=== PATIENT | female | born 1935 | race Caucasian/White ===

== ENCOUNTER → 2021-08-16 | Outpatient (CLI) | payer MEDICARE ==
[~2021-08-16] MED LIST: GLIM1TAB18 PO; OMEP20CA12 PO; SIMV-46 PO; VALS160T29 PO; VITA FUSION PO; vitamin b12 PO
== END | disposition home or self-care (01) ==
LOC: LAB 09:43
PROVIDERS: ATTEND Internal Medicine
DX: Z01.818 Encounter for other preprocedural examination (principal); M17.11 Unilateral primary osteoarthritis, right knee; M25.561 Pain in right knee; M47.815 Spondylosis without myelopathy or radiculopathy, thoracolumbar region; I49.8 Other specified cardiac arrhythmias; I44.7 Left bundle-branch block, unspecified
CPT/HCPCS: 71046; 93005

== ENCOUNTER 2021-09-04 08:00 | Inpatient (IN) | payer MEDICARE ==
[~2021-09-04] VITALS: Ht 152.4 cm; Wt 72.1 kg
[2021-09-04 10:18] LABS: BASOPHILS % (AUTO) 0.7 % (0.0-5.0); EOSINOPHILS % (AUTO) 3.2 % (0.0-8.0); HEMATOCRIT 41.2 % (36-48); LYMPHOCYTES % (AUTO) 21.5 % (21.0-51.0); MEAN CORPUSCULAR HEMOGLOBIN 27.7 pg (27.0-33.0); MEAN CORPUSCULAR VOLUME 86.6 fL (79-99); MONOCYTES % (AUTO) 6.9 % (3.0-13.0); NEUTROPHILS % (AUTO) 67.4 % (40.0-77.0); PLATELET COUNT (AUTO) 299 K/uL (130-400); RED BLOOD CELL COUNT(AUTO) 4.76 MIL/uL (4.00-5.50); RED CELL DISTRIBUTION WIDTH 14.2 % (11.0-15.5); WHITE BLOOD COUNT (AUTO) 10.3 K/uL (4.8-10.8)
[2021-09-04 10:23] LABS: CREATININE 0.9 mg/dL (0.5-1.5); POTASSIUM 3.7 mmol/L (3.5-5.1)
[2021-09-04 10:49] LABS: INR 1.05 (0.85-1.15); PROTHROMBIN TIME 11.4 SEC (9.6-11.6)
[2021-09-04 11:21] LABS: APPEARANCE,URINE Clear (CLEAR); BILIRUBIN,URINE Negative (NEGATIVE); COLOR,URINE Yellow (YELLOW); GLUCOSE, URINE (UA) Negative (NEGATIVE); KETONES,URINE Negative (NEGATIVE); LEUKOCYTE ESTERASE ,URINE Trace (NEGATIVE); NITRATE,URINE Negative (NEGATIVE); OCCULT BLOOD,URINE Negative (NEGATIVE); PH,URINE 5.5 (5.0-8.0); PROTEIN,URINE Negative (NEGATIVE)
[2021-09-04 11:51] LABS: BACTERIA,URINE Rare /HPF (None Seen); RBC,URINE 0-1 /HPF (0-1); SQUAMOUS EPITHELIAL CELL,UR Rare /HPF (0-2); WBC,URINE 0-1 /HPF (0-1)
[2021-09-05 13:28] VITALS: BP 217/98
[2021-09-05] MEDS ORDERED: vitamin b12 PO (13:35)
[2021-09-05] MEDS ORDERED: GLIM1TAB18 PO (13:35)
[2021-09-05] MEDS ORDERED: VALS160T29 PO (13:35)
[2021-09-05] MEDS ORDERED: OMEP20CA12 PO (13:35)
[2021-09-05] MEDS ORDERED: VITA FUSION PO (13:35)
[2021-09-05] MEDS ORDERED: SIMV-46 PO (13:35)
[2021-09-06] VITALS (21 sets, daily range): BP systolic 125–191; BP diastolic 59–87
[2021-09-06] MEDS ORDERED: 0.9%NACL 1000ML 1,000 ML IV ONE (07:14)
[2021-09-06] MEDS ORDERED: CEFAZOLIN SODIUM 1 GM VIAL IVP ONE (08:00)
[2021-09-06] MEDS ORDERED: CLINDAMYCIN IVPB 900MG/50ML 50 ML IV ONE (08:30)
[2021-09-06] MEDS ORDERED: LIDOCAINE PF 100MG/5ML (2%) SYRINGE 5ML ONE (08:31)
[2021-09-06] MEDS ORDERED: SUCCINYLCHOLINE CHLORIDE 20 MG/ML 10 ML VIAL ONE (08:31)
[2021-09-06] MEDS ORDERED: MIDAZOLAM HCL 1 MG/ML 2ML VIAL ONE (08:31)
[2021-09-06] MEDS ORDERED: PROPOFOL 10 MG/ML 20ML VIAL IV ONE (08:31)
[2021-09-06] MEDS ORDERED: ROCURONIUM 10MG/1ML SYR 10 MG/ML ML ONE (08:31)
[2021-09-06] MEDS ORDERED: FENTANYL CITRATE PF 50 MCG/1 ML 2ML VIAL ONE ×3 (08:32→12:14)
[2021-09-06] MEDS ORDERED: ESMOLOL HCL 10 MG/ML 10 ML VIAL ONE (08:44)
[2021-09-06] MEDS ORDERED: EPHEDRINE SULFATE 50 MG/ML AMPULE ONE (08:54)
[2021-09-06] MEDS: CLINDAMYCIN 900MG/6ML INJ ONE ×2 (08:58→09:46)
[2021-09-06] MEDS ORDERED: TRANEXAMIC ACID 1000MG/10ML ONE ×2 (09:11→12:22)
[2021-09-06] MEDS ORDERED: CLINDAMYCIN 900MG/6ML INJ IJ ONE (09:46)
[2021-09-06] MEDS ORDERED: HYDRALAZINE 20MG/ML VIAL ONE (09:54)
[2021-09-06] MEDS ORDERED: GLYCOPYRROLATE 1 MG/5 ML SYRINGE ONE (11:15)
[2021-09-06] MEDS ORDERED: NEOSTIGMINE 5MG/5ML SYR IV ONE (11:15)
[2021-09-06] MEDS: 0.9%NACL 1000ML 1,000 ML IV SCH ×2 (11:30→21:24)
[2021-09-06] MEDS ORDERED: KCL 20 MEQ ERTAB PO PRN (11:30)
[2021-09-06] MEDS ORDERED: POTASSIUM CHLORIDE 10% ELIXIR 20 MEQ/15 ML UDCUP PO PRN (11:30)
[2021-09-06] MEDS ORDERED: TEMAZEPAM 15 MG CAPSULE PO PRN (11:30)
[2021-09-06] MEDS: INSULIN HUMULIN R 100 UNIT/ML 3ML SQ SCH ×3 (11:30→20:28)
[2021-09-06] MEDS ORDERED: CLINDAMYCIN IVPB 900MG/50ML 50 ML IV SCH (11:30)
[2021-09-06] MEDS ORDERED: VANCOMYCIN 1G VIAL IVPB SCH (11:30)
[2021-09-06] MEDS ORDERED: DiphenhydrAMINE HCL 50 MG/ML VIAL IVP PRN (11:30)
[2021-09-06] MEDS ORDERED: 0.9% NACL 250ML IV SCH (11:30)
[2021-09-06] MEDS ORDERED: LIDOCAINE HCL-MPF 1% 2ML VIAL IV PRN (11:30)
[2021-09-06] MEDS ORDERED: TRAMADOL HCL 50 MG TABLET PO PRN (11:30)
[2021-09-06] MEDS ORDERED: FERROUS FUMARATE 324 MG TABLET PO PRN (11:30)
[2021-09-06] MEDS ORDERED: ONDANSETRON 4MG INJ IVP PRN (11:30)
[2021-09-06] MEDS ORDERED: POTASSIUM CHLORIDE 20MEQ/100ML 100 ML IV PRN (11:30)
[2021-09-06] MEDS: ACETAMINOPHEN 500 MG TABLET PO SCH ×2 (11:30→20:17)
[2021-09-06] MEDS ORDERED: MEPERIDINE-PF 25 MG/ML SYG ONE ×2 (11:39→11:52)
[2021-09-06] MEDS: KETOROLAC 15MG/ML VIAL (15MG/ML) IV PRN ×4 (11:59→20:17)
[2021-09-06] MEDS: VANCOMYCIN 1G/250ML KIT 250 ML IV SCH ×2 (12:30→15:30)
[2021-09-06] MEDS ORDERED: 0.9% NACL 250ML 250 ML ONE (15:28)
[2021-09-06] MEDS: OXYCODONE HCL 5 MG TAB PO PRN ×3 (15:45→21:33)
[2021-09-06] MEDS: CLINDAMYCIN IVPB 900MG/50ML 50 ML IV SCH (18:32)
[2021-09-06] MEDS: CELECOXIB 200 MG CAP PO SCH (20:17)
[2021-09-06] MEDS: PREGABALIN 25 MG CAP PO SCH (20:17)
[2021-09-06] MEDS: ASPIRIN 81 MG EC TAB PO SCH (20:17)
[2021-09-07] VITALS: BP 132/58
[2021-09-07] MEDS: CLINDAMYCIN IVPB 900MG/50ML 50 ML IV SCH (02:12)
[2021-09-07] MEDS: ACETAMINOPHEN 500 MG TABLET PO SCH ×3 (03:44→19:51)
[2021-09-07] MEDS: 0.9%NACL 1000ML 1,000 ML IV SCH (03:44)
[2021-09-07 04:00] VITALS: BP 112/55
[2021-09-07 04:24] LABS: HEMATOCRIT 31.7 % (36-48); MEAN CORPUSCULAR HGB CONC 31.2 g/dL (32.0-36.0); MEAN CORPUSCULAR VOLUME 86.6 fL (79-99); RED BLOOD CELL COUNT(AUTO) 3.66 MIL/uL (4.00-5.50); RED CELL DISTRIBUTION WIDTH 14.2 % (11.0-15.5); WHITE BLOOD COUNT (AUTO) 10.5 K/uL (4.8-10.8)
[2021-09-07 04:42] LABS: POTASSIUM 3.7 mmol/L (3.5-5.1)
[2021-09-07] MEDS: INSULIN HUMULIN R 100 UNIT/ML 3ML SQ SCH ×4 (05:48→20:55)
[2021-09-07 07:21] VITALS: BP 130/66
[2021-09-07] MEDS: OXYCODONE HCL 5 MG TAB PO PRN ×3 (08:20→21:51)
[2021-09-07] MEDS: MULTIVITAMIN WITH MINERALS TABLET PO SCH (08:26)
[2021-09-07] MEDS: CALCIUM CARB 500MG PO PRN ×2 (08:26→19:50)
[2021-09-07] MEDS: CYANOCOBALAMIN (VITAMIN B-12) 1,000 MCG TABLET PO SCH (08:26)
[2021-09-07] MEDS: PANTOPRAZOLE 40 MG TAB DR PO SCH (08:26)
[2021-09-07] MEDS: ASPIRIN 81 MG EC TAB PO SCH ×2 (08:27→19:50)
[2021-09-07] MEDS: POLYETHYLENE GLYCOL 3350 17 GM POWD.PACK PO SCH (08:27)
[2021-09-07] MEDS: CELECOXIB 200 MG CAP PO SCH ×2 (08:27→19:51)
[2021-09-07] MEDS: PREGABALIN 25 MG CAP PO SCH ×2 (08:27→19:51)
[2021-09-07] MEDS: SIMVASTATIN 20 MG TABLET PO SCH (09:00)
[2021-09-07] MEDS: LOSARTAN 100 MG TABLET PO SCH (09:01)
[2021-09-07] MEDS: GLIMEPIRIDE 2 MG TABLET PO SCH (09:01)
[2021-09-07 11:23] VITALS: BP_SYST 121; BP_SYST 148; BP_DIAS 68; BP_DIAS 73
[2021-09-07] MEDS ORDERED: 0.9% NACL 250ML 250 ML ONE (15:51)
[2021-09-07 15:57] VITALS: BP 153/76
[2021-09-07] MEDS ORDERED: VANCOMYCIN 1G/250ML KIT 250 ML IV SCH (16:00)
[2021-09-07 20:00] VITALS: BP 138/68
[2021-09-08 00:08] VITALS: BP 132/70
[2021-09-08] MEDS: ACETAMINOPHEN 500 MG TABLET PO SCH ×2 (03:54→14:29)
[2021-09-08 04:12] VITALS: BP 132/65
[2021-09-08] MEDS: INSULIN HUMULIN R 100 UNIT/ML 3ML SQ SCH ×3 (06:09→16:28)
[2021-09-08 07:28] VITALS: BP 140/66
[2021-09-08] MEDS: POLYETHYLENE GLYCOL 3350 17 GM POWD.PACK PO SCH (08:31)
[2021-09-08] MEDS: MULTIVITAMIN WITH MINERALS TABLET PO SCH (08:31)
[2021-09-08] MEDS: PREGABALIN 25 MG CAP PO SCH (08:31)
[2021-09-08] MEDS: CYANOCOBALAMIN (VITAMIN B-12) 1,000 MCG TABLET PO SCH (08:31)
[2021-09-08] MEDS: ASPIRIN 81 MG EC TAB PO SCH (08:31)
[2021-09-08] MEDS: CELECOXIB 200 MG CAP PO SCH (08:32)
[2021-09-08] MEDS: SIMVASTATIN 20 MG TABLET PO SCH (08:32)
[2021-09-08] MEDS: PANTOPRAZOLE 40 MG TAB DR PO SCH (08:32)
[2021-09-08] MEDS: LOSARTAN 100 MG TABLET PO SCH (08:33)
[2021-09-08] MEDS: GLIMEPIRIDE 2 MG TABLET PO SCH (08:33)
[2021-09-08] MEDS: OXYCODONE HCL 5 MG TAB PO PRN ×2 (08:35→15:35)
[2021-09-08 11:59] VITALS: BP 152/75
[2021-09-08 16:13] VITALS: BP 126/68
[2021-09-08] MEDS ORDERED: AEC81 PO (17:05)
[2021-09-08] MEDS ORDERED: HYDR-4060 PO (17:05)
[2021-09-09] MEDS ORDERED: BISACODYL 10 MG SUPP.RECT RC PRN (11:30)
== END 2021-09-08 18:12 | disposition home health service (06) | DRG 470 ==
LOC: OBSVTOIN 09-06 06:15 → DAHIP 09-06 06:15 → EDSTATUS 09-06 08:00 → 4AH 09-06 13:06
PROVIDERS: ADMIT Orthopaedic Surgery; ATTEND Orthopaedic Surgery
PROC: 0SRC0J9 Replacement of Right Knee Joint with Synthetic Substitute, Cemented, Open Approach (ICD-10-PCS; principal; 2021-09-06 08:35)
DX: M17.11 Unilateral primary osteoarthritis, right knee (principal); D62 Acute posthemorrhagic anemia; E78.5 Hyperlipidemia, unspecified; I10 Essential (primary) hypertension; Z90.49 Acquired absence of other specified parts of digestive tract; Z88.1 Allergy status to other antibiotic agents
CPT/HCPCS: 36415; 80048; 81001; 82948; 85025; 85027; 85610; 87088; 87635; 87641; 93005; 97039; G0378; J0330; J0360; J0690; J1200; J1885; J2001; J2175; J2250; J2405; J2704; J2710; J3010; J3370; J3490; J7030; J7050